=== PATIENT | male | born 1975 | race Caucasian/White ===

== ENCOUNTER 2019-03-18 18:49 | Emergency (ER) | payer OTHER, SELFPAY ==
--- NOTE | 2019-03-18 18:51 | ED.GENADULT ---
HPI - General Adult General Chief complaint: Upper Respiratory Infection Stated complaint: sore throat/ear pain Time Seen by Provider: 03/18/19 18:51 Source: patient Mode of arrival: ambulatory Limitations: no limitations History of Present Illness HPI narrative: 44-year-old male patient presents to the [facility] with complaints of sore throat and bilateral ear pain for the past 3 weeks. Patient states he does have a history of chronic sinusitis and has been had a cough recently as well recently has been coughing up some brown sputum. Patient states he is tried taking some ricola for his sore throat. Patient states that he does see an ENT doctor in [place]. Denies any fevers that he is aware of. Patient states he has had strep before in the past and does have children at home but denies any children recently being sick with strep that he is aware of. Related Data Home Medications Medication Instructions Recorded Confirmed cyclobenzaprine 10 mg TID 03/18/19 03/18/19 montelukast 10 mg HS 03/18/19 03/18/19 Allergies Allergy/AdvReac Type Severity Reaction Status Date / Time droperidol Allergy Unknown MUSCLE Verified 10/20/17 12:01 SPASMS codeine AdvReac Unknown STATES Verified 10/20/17 12:01 FAMILY HAS ALLERGY TO THIS, PREFERS NOT TO HAVE hydrocodone AdvReac Unknown SWEATING/NA Verified 10/20/17 12:01 USEA/VOMITI NG meperidine AdvReac Unknown N/V Verified 10/20/17 12:01 Review of Systems Review of Systems: Narrative: CONSTITUTIONAL: Denies fever, chills, or sweats. EYES: Denies visual changes, redness, or discharge. ENT: Denies rhinorrhea, congestion, positive sore throat, positive bilateral otalgia. CARDIOVASCULAR: Denies chest pain, palpitations, or edema. RESPIRATORY: Positive productive cough, denies dyspnea. GASTROINTESTINAL: Denies abdominal pain, nausea, vomiting, or diarrhea. GENITOURINARY: Denies dysuria or hematuria. SKIN: Denies rash or itching. MUSCULOSKELETAL: Denies back pain, joint pain, or myalgia. NEUROLOGIC: Denies headache, numbness, or weakness. PSYCHIATRIC: Denies anxiety or depression. [facility] Past Medical History Medical History (Updated 03/18/19 @ 19:22 by GERALDO García) Asthma GERD (gastroesophageal reflux disease) Kidney stones Surgical History Surgical History (Updated 03/18/19 @ 18:52 by GERALDO García) H/O inguinal hernia repair History of orthopedic surgery Family History Family History Other Diabetes mellitus Family history of allergic disorder Hypertension Social History Social History Smoking status: Former smoker Smoking end date: 02/15/07 Alcohol intake: current Gender identity (if verbalized by the patient): Male Comments At the time of my signature I agree with nursing past medical history, surgical, social, and family history. There is no relevant family history pertinent to the presenting complaint. Exam Narrative: Exam Narrative: GENERAL: Well-appearing, well-nourished, and in no acute distress. HEAD: Normocephalic, atraumatic. Slight tenderness noted to frontal and maxillary sinuses on palpation EYES: PERRLA and EOMI. ENT: Nares with erythema and edema noted bilaterally, patent, no rhinorrhea or epistaxis. Mucous membranes moist. Posterior pharynx with 2+ tonsil enlargement and erythema noted. Bilateral TMs are clear with no erythema or foreign bodies in the canal. NECK: Supple. No lymphadenopathy CHEST: Clear to auscultation. No respiratory distress. HEART: Regular rate and rhythm. No murmur heard. Normal peripheral pulses. ABDOMEN: Soft, nontender, nondistended, normal active bowel sounds. EXTREMITIES: Normal range of motion. No edema. SKIN: Warm, dry, no rash. NEURO: No focal deficits. Alert and oriented x3. Course Reevaluation(s) Reevaluation #1: Discussed with patient t
[2019-03-18 19:02] VITALS: BP 139/93; PULSE 90; RESP 20; TEMP 36.6; O2SAT 99
== END 2019-03-18 19:20 | disposition home or self-care (01) ==
PROVIDERS: Emergency Provider Nurse Practitioner Family; PCP Internal Medicine
DX: J01.00 Acute maxillary sinusitis, unspecified (principal); J02.9 Acute pharyngitis, unspecified; Z87.891 Personal history of nicotine dependence; J45.909 Unspecified asthma, uncomplicated; K21.9 Gastro-esophageal reflux disease without esophagitis
CPT/HCPCS: 87081; 87880; 99213; G0463

== ENCOUNTER → 2019-05-01 10:39 | Outpatient (CLI) | payer OTHER, SELFPAY ==
--- NOTE | ~2019-05-01 | XR_ITS ---
EXAMINATION: XR abdomen/kub 1V INDICATION: Calculus of the kidney TECHNIQUE: Supine views of the abdomen were obtained on 2 radiographs. COMPARISON: 05/03/2017 FINDINGS: No urinary tract calculi are identified. The bowel gas pattern is normal. A moderate volume of colonic stool is present. IMPRESSION: 1. No urinary tract calculi identified. Reviewed, dictated and finalized at location A.
== END ==
PROVIDERS: PCP Internal Medicine; Visit Provider Urology
DX: N20.0 Calculus of kidney (principal)
CPT/HCPCS: 74018

== ENCOUNTER 2020-09-30 08:39 | Outpatient (CLI) | payer OTHER, SELFPAY ==
--- NOTE | ~2020-09-30 | XR_ITS ---
EXAMINATION: XR ankle LT min 3V, XR ankle RT min 3V, XR foot RT min 3V, XR foot LT min 3V DATE: 09/30/2020 09:23 INDICATION: Left heel pain and right ankle pain. TECHNIQUE: 1. Weight bearing anteroposterior, mortise, additional oblique and lateral view of the left ankle wer e obtained. 2. Weight bearing dorsal plantar, two oblique and lateral views of the left foot were obtained. 3. Weight bearing anteroposterior, mortise, additional oblique and lateral view of the right ankle we re obtained. 4. Weight bearing dorsal plantar, two oblique and lateral views of the right foot were obtained. COMPARISON: None. FINDINGS: Left foot and ankle: Alignment of the chest foot and ankle is normal. No fracture or osteochondral lesion. Joint spaces ar e well maintained. No erosions or periosteal reaction. No ankle joint effusion. Moderate-sized planta r calcaneal spur. The soft tissues are unremarkable. Right foot and ankle: Mild right pes planus. Otherwise normal alignment of the right foot and ankle is normal. No fracture or osteochondral lesion. Joint spaces are well maintained. No erosions or periosteal reaction. No ank le joint effusion. Small plantar calcaneal spur. The soft tissues are unremarkable. IMPRESSION: 1. Mild right pes planus. 2. Small right and moderate sized left plantar calcaneal spurs. Reviewed, dictated and finalized at location A. IMPRESSION: 1. Mild right pes planus. 2. Small right and moderate sized left plantar calcaneal spurs. IMPRESSION: 1. Mild right pes planus. 2. Small right and moderate sized left plantar calcaneal spurs. IMPRESSION: 1. Mild right pes planus. 2. Small right and moderate sized left plantar calcaneal spurs.
== END 2020-09-30 08:40 | disposition home or self-care (01) ==
LOC: CHSIMG 08:43
PROVIDERS: PCP Internal Medicine; Visit Provider Orthopaedic Surgery
DX: M79.672 Pain in left foot (principal); M79.671 Pain in right foot; M25.572 Pain in left ankle and joints of left foot; M25.571 Pain in right ankle and joints of right foot
CPT/HCPCS: 73610; 73630

== ENCOUNTER 2021-08-14 19:54 | Emergency (ER) | payer OTHER, SELFPAY ==
--- NOTE | 2021-08-14 20:01 | ED.MALEGU ---
HPI - Male Genitourinary General Chief complaint: Urogenital-Male Stated complaint: poss kidney stone Time Seen by Provider: 08/14/21 20:01 History of Present Illness HPI Narrative: John Rossi is a 46 yo male with asthma, GERD, SAMAN, kidney stones who comes to express care with possible kidney stone. Came in at 3 minutes until 8:00 for evaluation-reports pain is 5 out of 10, has had kidney stones before and believes this is the cause of his pain, has left flank pain lower left inguinal pain has had some nausea and some diarrhea today. States urine this morning was concentrated and what he believed to be half blood Related Data Home Medications Medication Instructions Recorded Confirmed loratadine 10 mg tablet (Claritin) 10 mg PO DAILY 09/30/20 montelukast 10 mg tablet 10 mg PO DAILY 09/30/20 (Singulair) cyclobenzaprine 10 mg tablet 1 tablet BID 08/14/21 08/14/21 Allergies Allergy/AdvReac Type Severity Reaction Status Date / Time droperidol Allergy Unknown MUSCLE Verified 08/14/21 20:12 SPASMS codeine AdvReac Unknown STATES Verified 08/14/21 20:12 FAMILY HAS ALLERGY TO THIS, PREFERS NOT TO HAVE hydrocodone AdvReac Unknown SWEATING/NA Verified 08/14/21 20:12 USEA/VOMITI NG meperidine AdvReac Unknown N/V Verified 08/14/21 20:12 Review of Systems Review of Systems: CONSTITUTIONAL: Denies fever, chills, sweats. EYES: Denies visual changes, redness, discharge. ENT: Denies rhinorrhea, congestion, sore throat, otalgia. CARDIOVASCULAR: Denies chest pain, palpitations, edema. RESPIRATORY: Denies dyspnea, wheezing, cough GASTROINTESTINAL: Denies abdominal pain, nausea, vomiting, diarrhea. GENITOURINARY: Denies dysuria, hematuria, abnormal discharge SKIN: Denies rash or itching. NEUROLOGIC: Denies numbness, or focal weakness. PSYCHIATRIC: Denies anxiety or depression. Flank pain PMFSH Past Medical History Medical History Asthma Capsulitis of right ankle Congestion of nasal sinus Contusion of ankle, right GERD (gastroesophageal reflux disease) History of adverse reaction to anesthesia History of postoperative complication of surgical procedure Kidney stones SAMAN (obstructive sleep apnea) Plantar fasciitis of left foot Surgical History Surgical History H/O inguinal hernia repair History of extraction of renal calculus History of orthopedic surgery Family History Family History Other Diabetes mellitus Family history of allergic disorder High cholesterol Hypertension Social History Social History Smoking status: Former smoker Smoking end date: 03/02/06 Alcohol intake: current Drinks per week: 3 Substance use: never Substance use type: does not use Gender identity (if verbalized by the patient): Male Comments At time of signature, I agree with nursing past medical, surgical, social and family history. There is no relevant family history pertinent to the presenting complaint. Exam Narrative: GENERAL: This is a well-nourished, well-developed patient, in mild distress. HEAD: normocephalic, atraumatic. EYES:Sclera clear/white. Vision is grossly intact. EARS: External ears normal, Hearing grossly intact. NOSE: External nose normal without nasal discharge, nares without redness, no rhinorrhea. THROAT: Mucous membranes moist, NECK: Neck supple, non-tender CARDIOVASCULAR: Regular rate and rhythm without murmurs, gallops, or rubs. RESPIRATORY: Clear to auscultation. Breath sounds equal bilaterally. GASTROINTESTINAL: Abdomen soft, large pannus, pain in the left flank going down into the left inguinal area SKIN: warm, intact with no suspicious lesions or rash, good texture and turgor. NEURO: awake, alert, and oriented to person, pl
[2021-08-14 20:08] VITALS: BP 155/99; PULSE 102; RESP 18; TEMP 37.1; O2SAT 99
== END 2021-08-14 20:17 | disposition short-term general hospital (02) ==
PROVIDERS: Emergency Provider Nurse Practitioner; PCP Internal Medicine
DX: R10.9 Unspecified abdominal pain (principal); Z87.891 Personal history of nicotine dependence; J45.909 Unspecified asthma, uncomplicated; K21.9 Gastro-esophageal reflux disease without esophagitis; Z87.442 Personal history of urinary calculi
CPT/HCPCS: 81003; 87086; 99213; G0463

== ENCOUNTER 2021-08-14 20:34 | Emergency (ER) | payer OTHER, SELFPAY ==
--- NOTE | ~2021-08-14 | XR_ITS ---
EXAMINATION: XR abdomen/kub 1V INDICATION: Left flank pain TECHNIQUE: Supine views of the abdomen were obtained on 2 radiographs. COMPARISON: 04/30/2009 FINDINGS: There is a 7 mm stone at the expected location of the left ureteropelvic junction. The know n nonobstructing right kidney stone identified on today's CT is not definitely identified. The lung b ases are clear. The bowel gas pattern is normal. IMPRESSION: 1. 7 mm stone at the expected location of the left ureteropelvic junction. Reviewed, dictated and finalized at location F.
--- NOTE | ~2021-08-14 | CT_ITS ---
EXAMINATION: CT abdomen pelvis wo con DATE: 08/14/2021 21:05 INDICATION: Left flank pain TECHNIQUE: Computed tomography (CT) of the abdomen and pelvis was performed without intravenous contr ast. The dose-length product (DLP) was 707.41 mGy-cm. Automated exposure control and iterative recons truction technique were employed. COMPARISON: 11/17/2014 FINDINGS: Minimal dependent atelectasis is present in the lung bases. The heart size is normal. A 3 m m nodule of the right lower lobe likely represents old granulomatous disease. There is a small slidin g hiatal hernia. Punctate calcifications in an otherwise normal spleen likely represent healed granul omatous disease. The liver, pancreas, gallbladder, and adrenal glands are normal. There is a 5 mm sto ne at the left ureteropelvic junction. There is a 3 mm nonobstructing stone of the right kidney. The appendix is normal. No pathologically enlarged abdominal or pelvic lymph nodes are identified. There is no free intraperitoneal gas or evidence of bowel obstruction. There is moderate lumbar spondylosis . IMPRESSION: 1. 5 mm stone at left ureteropelvic junction. 2. Nonobstructing right nephrolithiasis. Reviewed, dictated and finalized at location F.
[2021-08-14 20:36] VITALS: BP 172/100; PULSE 110; RESP 20; TEMP 36.5; O2SAT 98
[2021-08-14 21:00] LABS: Basophils Percent Auto 0.3 % (0.2-1.2); Eosinophils Absolute Auto 0.1 K/mm3 (0-0.3); Eosinophils Percent Auto 0.5 % (0-4.4); Hematocrit 49.5 % (42.0-52.0); Immature Granulocyte Absolute 0.05 K/mm3 (0.00-0.031); Immature Granulocyte Percent A 0.4 % (0-0.5); Lymphocytes Percent Auto 13.5 % (18.3-44.2); Mean Corpuscular HGB Conc 34.3 g/dl (32-36); Mean Corpuscular Hemoglobin 30.4 pg (26-34); Mean Corpuscular Volume 88.6 fl (80-100); Mean Platelet Volume 8.9 fl (7.4-10.4); Monocytes Absolute Auto 0.8 K/mm3 (0.1-0.6); Neutrophils Absolute Auto 8.7 K/mm3 (1.3-6.7); Neutrophils Percent Auto 78.3 % (45.5-73.1); Platelet Count Result 257 k/mm3 (150-375); Red Blood Count 5.59 M/mm3 (4.6-6.20); Red Cell Distribution Width 12.4 % (11.5-14.5); White Blood Count 11.2 K/mm3 (4.5-10.0)
[2021-08-14 21:01] LABS: Appearance Urine Clear (Clear); Bilirubin Urine Negative (Negative); Color Urine Yellow (Yellow); Glucose Urine UA Negative (Negative); Ketones Urine Negative (Negative); Leukocyte Esterase Ur Negative LEU/UL (Negative); Nitrate Urine Negative (Negative); Protein Urine Negative (Negative); Specific Grav Ur 1.025 (1.001-1.035); Urobilinogen Urine 0.2 mg/dL (<2.0)
[2021-08-14 21:03] LABS: Add Urine Microscopic? YES; Blood Urine Trace-Intact (Negative)
[2021-08-14 21:04] LABS: WBC Urine 0-3 /hpf
[2021-08-14 21:09] LABS: Alanine Aminotransferase 24 U/L (6-50); Albumin Level 4.4 g/dL (3.5-5.1); Alkaline Phosphatase 86 U/L (38-126); Anion Gap 5 mmol/L (8-16); Aspartate Amino Transferase 21 U/L (17-59); Bilirubin,Total 0.3 mg/dL (0.2-1.3); Blood Urea Nitrogen 17 mg/dL (9-20); Carbon Dioxide 27 mmol/L (22-30); Chloride 107 mmol/L (98-107); Estimated CRCL calculation 129 ml/min; Estimated Glomerular Filt Rate > 60; Glucose 115 mg/dL (65-110); Lipase 64 U/L (23-300); Potassium 4.4 mmol/L (3.4-5.0); Sodium 139 mmol/L (137-145)
[2021-08-14] MEDS: MORPHINE SULFATE (*CRX) 4 MG/ML INJ IV PUSH (21:10)
[2021-08-14] MEDS: ONDANSETRON INJ 4 MG/2 ML VIAL IV PUSH (21:10)
[2021-08-14] MEDS: SODIUM CHLORIDE 0.9% IV 1,000 ML 150 ML IV CONT (21:11)
--- NOTE | 2021-08-14 22:06 | ED.ABDPAIN ---
HPI - Abdominal Pain General Chief Complaint: Abdominal Pain Stated Complaint: flank pain h/o stones Time Seen by Provider: 08/14/21 20:46 Source: patient Mode of arrival: ambulatory Limitations: no limitations History of Present Illness HPI narrative: 46-year-old with a history of kidney stones here with complaints of left flank pain started yesterday . Patient states that he always has large stones which needs intervention all the time. He denies any fever or chills. He also states that he had some blood in his urine. MD elicited complaint: flank pain Pertinent past history: kidney stones Pain Consistency: constant Location: L flank Severity: moderate Quality: aching Radiation: none Migration to: no migration Exacerbating factors: nothing Relieving factors: nothing Associated symptoms: nausea Related Data Home Medications Medication Instructions Recorded Confirmed loratadine 10 mg tablet (Claritin) 10 mg PO DAILY 09/30/20 08/14/21 montelukast 10 mg tablet 10 mg PO DAILY 09/30/20 08/14/21 (Singulair) cyclobenzaprine 10 mg tablet 1 tablet BID 08/14/21 08/14/21 Allergies Allergy/AdvReac Type Severity Reaction Status Date / Time droperidol Allergy Unknown MUSCLE Verified 08/14/21 20:53 SPASMS codeine AdvReac Unknown STATES Verified 08/14/21 20:53 FAMILY HAS ALLERGY TO THIS, PREFERS NOT TO HAVE hydrocodone AdvReac Unknown SWEATING/NA Verified 08/14/21 20:53 USEA/VOMITI NG meperidine AdvReac Unknown N/V Verified 08/14/21 20:53 Review of Systems Review of Systems: All systems reviewed & are unremarkable except as noted in HPI and below Constitutional: Constitutional: Reports no additional constitutional complaints Eyes: Eyes: Reports no additional eye complaints ENT: Reports system reviewed and no additional complaints, except as documented Cardiovascular: Cardiovascular: Reports no additional cardiovascular complaints Respiratory: Respiratory: Reports no additional respiratory complaints Gastrointestinal: Gastrointestinal: Reports as per HPI Genitourinary: Genitourinary: Reports no additional male genitourinary complaints Musculoskeletal: Musculoskeletal: Reports no additional musculoskeletal complaints Integumentary/Breasts: Skin/Breast: Reports system reviewed and no additional complaints, except as docu Neurologic: Reports system reviewed and no additional complaints, except as documented [facility] Past Medical History Medical History Asthma Capsulitis of right ankle Congestion of nasal sinus Contusion of ankle, right GERD (gastroesophageal reflux disease) History of adverse reaction to anesthesia History of postoperative complication of surgical procedure Kidney stones SAMAN (obstructive sleep apnea) Plantar fasciitis of left foot Surgical History Surgical History H/O inguinal hernia repair History of extraction of renal calculus History of orthopedic surgery Family History Family History Other Diabetes mellitus Family history of allergic disorder High cholesterol Hypertension Social History Social History Smoking status: Former smoker Smoking end date: 03/02/06 Alcohol intake: current Drinks per week: 3 Substance use: never Substance use type: does not use Gender identity (if verbalized by the patient): Male Exam Narrative: GENERAL: Well-appearing, well-nourished, and in no acute distress. HEAD: Normocephalic, atraumatic. EYES: PERRLA and EOMI.. NECK: Supple. CHEST: Clear to auscultation. No respiratory distress. HEART: Regular rate and rhythm. No murmur heard. Normal peripheral pulses. ABDOMEN: Soft, nontender, nondistended, normal active bowel sounds. EXTREMITIES: Normal range of motion. No edema. SK
[2021-08-14 22:27] VITALS: RESP 16; O2SAT 99
== END 2021-08-14 22:28 | disposition home or self-care (01) ==
PROVIDERS: Physician Assistant; Emergency Provider Family Medicine; PCP Internal Medicine
DX: N20.2 Calculus of kidney with calculus of ureter (principal); J45.909 Unspecified asthma, uncomplicated; K21.9 Gastro-esophageal reflux disease without esophagitis; G47.33 Obstructive sleep apnea (adult) (pediatric); Z87.442 Personal history of urinary calculi; Z87.891 Personal history of nicotine dependence
CPT/HCPCS: 36415; 74018; 74176; 80053; 81001; 83690; 85025; 96360; 96374; 96375; 99284; J2270; J2405; J7030

== ENCOUNTER 2021-09-03 16:10 | Outpatient (CLI) | payer OTHER, SELFPAY ==
--- NOTE | ~2021-09-03 | XR_ITS ---
EXAM: XR abdomen/kub 1V DATE: 09/03/2021 16:25 HISTORY: LEFT URETERAL STONE . COMPARISON: 08/14/2021. CT abdomen pelvis, same date. FINDINGS: Clear lung bases. Normal bowel gas pattern. No organomegaly. 10 mm calcification at the le ft UPJ, unchanged. Regional bones and soft tissues normal for age. IMPRESSION: Stable left UPJ stone. Punctate bilateral nonobstructive calculi seen in the prior CT are not radiographically visible. Reviewed, dictated and finalized at location K. IMPRESSION: Stable left UPJ stone. Punctate bilateral nonobstructive calculi se en in the prior CT are not radiographically visible.
== END 2021-09-03 16:11 | disposition home or self-care (01) ==
PROVIDERS: PCP Internal Medicine; Visit Provider Nurse Practitioner Adult Health
DX: N20.2 Calculus of kidney with calculus of ureter (principal)
CPT/HCPCS: 74018

== ENCOUNTER 2021-09-05 00:42 | Day surgery (SDC) | payer OTHER, SELFPAY ==
[2021-09-04 14:23] VITALS: BMI 36.9
--- NOTE | 2021-09-04 14:31 | PC.NURSE ---
Report to the Outpatient Waiting Room, entrance under the green pavilion located off [facility], at time 0930 on date 09/05/21. OR Time: 1130. - You and your visitor will be asked a series of questions to screen for COVID 19 for your protection. - Only one visitor is allowed at this time. - The patient visitor is requested to leave or wait in car when not with patient. - A mask is required within the hospital. Patients may have clear liquids (water, carbonated beverages, clear teas, apple juice) until 3 hours prior to surgery with a maximum of 20 ounces. - No food from midnight until time of surgery Take the following medications with a SIP of water the morning of surgery: PAIN PILL (IF NEEDED) Medications to discontinue per physician: CELEBREX Date to take last dose: NO MORE UNTIL AFTER SURGERY Please no make-up, nail croatian, hairspray, perfume, deodorant, or body powder the day of surgery. No jewelry (including any body piercings) or valuables the day of surgery, leave them at home. Please take a shower or bath the night before, or the morning of, surgery with an antibacterial soap. Wear comfortable, loose fitting clothing. - Jewelry must be removed prior to entering the operating room. Rings and piercings that are not removed may be cut off. - The hospital will not accept responsibility for valuables. - Please leave all valuables, including medications, at home the day of surgery. If you are going home after surgery, a licensed warehouse driver must drive you home. - NO public transportation without another adult. - We recommend that an adult stay with you for 24 hours following discharge. - We also recommend that you do not drive, make important decision, drink alcoholic beverages, or take any drugs that were not prescribed by your health care provider for at least 24 hours after your discharge time. Follow any additional instructions given to you from your surgeon. If you or anyone in your household have experienced Covid symptoms in the past week, please notify your surgeon or the nurse liaison at the phone number below for possible testing. Telephone instructions given to PT - ASHOK VIVAS and asked if any additional questions and then verbalized understanding. Patient advised to call surgeon office or pre surgery nurse liaison [phone] if any additional questions.
[2021-09-05] VITALS (9 sets, daily range): BP systolic 120–144; BP diastolic 64–96; PULSE 80–91; RESP 14–23; TEMP 36.6–37.1; O2SAT 98–100
--- NOTE | ~2021-09-05 | XR_ITS ---
XR abdomen/kub 1V 09/05/2021 09:58 Indication: Renal stones. Preop ESWL. Procedure: KUB Comparison: Comparison to multiple prior studies sequentially, with oldest reviewed study dated 05/03. Findings: Bowel gas pattern is nonobstructive. Moderate colonic fecal loading. There is left renal st one presumably in the renal pelvis. No definite stones in the ureter. No acute osseous abnormality. L jenae bases are unremarkable. Impression: 1: Left nephrolithiasis. Reviewed, dictated and finalized at location A. Impression: 1: Left nephrolithiasis.
--- NOTE | 2021-09-05 07:02 | WPDHPUPDATE1 ---
History and Physical Update Update Date/Time: 09/05/21 07:02 History and Physical has been reviewed, including an updated exam of the patient. There are NO changes in the patient's condition. Risks, benefits, and alternatives have been discussed and questions answered. Patient agrees to proceed with procedure.
--- NOTE | 2021-09-05 10:33 | WPDANESEPPF ---
Anes - Initial Pre Proc Eval Procedure: Operation Date: 09/05/21 11:30 Proposed Procedures p Left Extracorporeal Shock Wave Lithotripsy - Keshav Poe MD Date/Time: 09/05/21 10:33 Surgeon: Keshav Poe MD Pre Op Diagnosis: Left Ureteral Stone Patient Data Age: 46 Gender: M Height: 1.75 m Weight: 112.4 kg Last Vital Signs Temp 37.1 C 09/05/21 10:03 Pulse 91 09/05/21 10:03 Resp 20 09/05/21 10:03 BP 133/85 09/05/21 10:03 Pulse Ox 99 09/05/21 10:03 O2 Del Method Room Air 09/05/21 10:03 Allergies Allergy/AdvReac Type Severity Reaction Status Date / Time droperidol Allergy Unknown MUSCLE Verified 09/04/21 14:21 SPASMS codeine AdvReac Unknown STATES Verified 09/04/21 14:21 FAMILY HAS ALLERGY TO THIS, PREFERS NOT TO HAVE hydrocodone AdvReac Unknown SWEATING/NA Verified 09/04/21 14:21 USEA/VOMITI NG meperidine AdvReac Unknown N/V Verified 09/04/21 14:21 Home Medications Medication Instructions Recorded Confirmed Type loratadine 10 mg tablet (Claritin) 10 mg PO DAILY 09/30/20 09/04/21 History montelukast 10 mg tablet 10 mg PO DAILY 09/30/20 09/04/21 History (Singulair) cyclobenzaprine 10 mg tablet 1 tablet PO BID 08/14/21 09/04/21 History oxycodone-acetaminophen 5 mg-325 1 tablet PO Q6H PRN pain #20 tabs 08/14/21 09/04/21 Rx mg tablet (Percocet) tamsulosin 0.4 mg capsule (Flomax) 0.4 mg PO HS #10 caps 08/14/21 09/04/21 Rx celecoxib 100 mg capsule 200 mg PO Q24H PRN Pain 09/04/21 09/04/21 History Laboratory Tests 09/05/21 10:17 Urine Color Pending Urine Appearance Pending Urine pH Pending Ur Specific [place] Pending Urine Protein Pending Urine Glucose (UA) Pending Urine Ketones Pending Ur Blood (Man) Pending Urine Nitrate Pending Urine Bilirubin Pending Urine Urobilinogen Pending Leukocyte Esterase Rfl Pending Patient hx anesthesia problems: none Family hx anesthesia problems: none Results Review: All pre-operative results and documents have been reviewed as part of the pre-operative evaluation. [facility] Past Medical History Medical History Asthma Capsulitis of right ankle Congestion of nasal sinus Contusion of ankle, right GERD (gastroesophageal reflux disease) History of adverse reaction to anesthesia History of postoperative complication of surgical procedure Kidney stones SAMAN (obstructive sleep apnea) Plantar fasciitis of left foot Surgical History Surgical History H/O inguinal hernia repair History of extraction of renal calculus History of orthopedic surgery Family History Family History Other Diabetes mellitus Family history of allergic disorder High cholesterol Hypertension Social History Social History Smoking packs per day: 0.5 Smoking cigarettes per day: 10.0 Years smoked: 10 Smoking pack-years: 5.00 Smoking status: Former smoker Tobacco type: cigarettes Smoking end date: 03/01/06 Alcohol intake: current Drinks per week: 2 Substance use: never Substance use type: does not use Living arrangements: with family Gender identity (if verbalized by the patient): Male Spiritual care concerns: No Anes - Eval Final PreProcedure Day of Procedure 09/05/21 10:33 Patient weight: obese Heart: regular rate and rhythm Lungs: clear to auscultation and normal air movement Airway: Mallampati scale class II Neurological: alert and oriented Last oral intake: >/= 8 hours ASA classification: III Emergent: no Anesthetic plan: proceed Anesthesia type and monitoring: general LMA Results Review: All pre-operative results and documents have been reviewed as part of the pre-operative
[2021-09-05 10:39] LABS: Appearance Urine Slightly Cloudy (Clear); Bilirubin Urine Negative (Negative); Blood Urine Negative (Negative); Color Urine Yellow (Yellow); Glucose Urine UA Negative (Negative); Ketones Urine Negative (Negative); Leukocyte Esterase Ur Negative LEU/UL (Negative); Nitrate Urine Negative (Negative); Protein Urine Trace mg/dL (Negative); Urobilinogen Urine 0.2 mg/dL (<2.0)
[2021-09-05] MEDS: LACTATED RINGERS 1,000 ML 30 ML IV CONT ×2 (10:40→12:57)
[2021-09-05 10:49] LABS: Bacteria Urine Trace /hpf; Mucus Urine Few /lpf; WBC Urine 0-3 /hpf
[2021-09-05 10:53] LABS: Add Urine Microscopic? YES
[2021-09-05 10:56] LABS: INR 1.1; Prothrombin Time 13.4 Seconds (11.1-14.7)
--- NOTE | 2021-09-05 11:35 | PM.HPGS ---
History of Present Illness History of Present Illness Consent: Risks, benefits, and alternatives have been discussed and questions answered. Patient agrees to proceed with procedure. Chief complaint: Left Ureteral Stone Narrative: John Rossi is a 46 year old male has had stones in the past that have required both lithotripsy and endoscopic extraction presents with left flank imaging that shows an obstructing 5 mm calcified left proximal calculus. After discussion of options including medical expulsive therapy, ureteroscopy and extracorporeal shockwave lithotripsy he elects for the latter. He is risk including, but not limited to, need for additional procedures, stone fragments may be obstructive in cause additional pain hematuria and perinephric hematoma Review of Systems Cardiovascular: Cardiovascular: Denies chest pain, Denies lightheadedness, Denies palpitations and Denies dyspnea Respiratory: Respiratory: Denies dyspnea Gastrointestinal: Gastrointestinal: Denies diarrhea, Denies nausea and Denies vomiting Genitourinary: Genitourinary: Denies hematuria and Denies dysuria Endocrine: Endocrine: Denies palpitations PMFSH Past Medical History Medical History Asthma Capsulitis of right ankle Congestion of nasal sinus Contusion of ankle, right GERD (gastroesophageal reflux disease) History of adverse reaction to anesthesia History of postoperative complication of surgical procedure Kidney stones SAMAN (obstructive sleep apnea) Plantar fasciitis of left foot Surgical History Surgical History H/O inguinal hernia repair History of extraction of renal calculus History of orthopedic surgery Family History Family History Other Diabetes mellitus Family history of allergic disorder High cholesterol Hypertension Social History Social History Smoking packs per day: 0.5 Smoking cigarettes per day: 10.0 Years smoked: 10 Smoking pack-years: 5.00 Smoking status: Former smoker Tobacco type: cigarettes Smoking end date: 03/01/06 Alcohol intake: current Drinks per week: 2 Substance use: never Substance use type: does not use Living arrangements: with family Gender identity (if verbalized by the patient): Male Spiritual care concerns: No Meds Home Medications and Allergies Home Medications Medication Instructions Recorded Confirmed Type loratadine 10 mg tablet (Claritin) 10 mg PO DAILY 09/30/20 09/05/21 History montelukast 10 mg tablet 10 mg PO DAILY 09/30/20 09/05/21 History (Singulair) cyclobenzaprine 10 mg tablet 1 tablet PO BID 08/14/21 09/05/21 History oxycodone-acetaminophen 5 mg-325 1 tablet PO Q6H PRN pain #20 tabs 08/14/21 09/05/21 Rx mg tablet (Percocet) tamsulosin 0.4 mg capsule (Flomax) 0.4 mg PO HS #10 caps 08/14/21 09/05/21 Rx celecoxib 100 mg capsule 200 mg PO Q24H PRN Pain 09/04/21 09/05/21 History Allergies Allergy/AdvReac Type Severity Reaction Status Date / Time droperidol Allergy Unknown MUSCLE Verified 09/05/21 10:49 SPASMS codeine AdvReac Unknown STATES Verified 09/05/21 10:49 FAMILY HAS ALLERGY TO THIS, PREFERS NOT TO HAVE hydrocodone AdvReac Unknown SWEATING/NA Verified 09/05/21 10:49 USEA/VOMITI NG meperidine AdvReac Unknown N/V Verified 09/05/21 10:49 Vital Signs Vital Signs - 24 hr 09/05/21 10:03 Temperature 98.8 F Pulse Rate 91 Respiratory Rate 20 Blood Pressure 133/85 Pulse Oximetry 99 Oxygen Delivery Room Air Exam Const: General: no acute distress Resp: Effort & Inspection: normal respiratory effort GI: Inspection: non-distended GI Palp: No abdominal tenderness and No Guarding due to palpation present (GI) Auscultation: normal bowel sounds Assessment and Plan
--- NOTE | 2021-09-05 11:36 | WPDHPUPDATE1 ---
History and Physical Update Update Date/Time: 09/05/21 11:36 History and Physical has been reviewed, including an updated exam of the patient. There are NO changes in the patient's condition. Risks, benefits, and alternatives have been discussed and questions answered. Patient agrees to proceed with procedure.
[2021-09-05] MEDS: ceFAZolin 2 GM/D5W 50 ML 2 GM/50 ML BAG IVPB (12:16)
--- NOTE | 2021-09-05 12:30 | W.PM.PROC2 ---
Procedure Note - Detailed Date of Procedure 09/05/21 Pre-op Diagnosis Left Ureteral Stone Post-op Diagnosis Same Procedure Performed Left ESWL Surgeon Keshav Poe MD Description of Procedure The patient was brought to the operative suite where he was placed in the supine position on the Dornier lithotripsy table. The focal point of the lithotripter was placed at a 5mm left UPJ calculus. A total of 2500 shocks were delivered at a power setting of 4. There appeared to be good fragmentation of the stone. The patient tolerated the procedure well and was taken to the recovery room in good condition. Drains No Packing No Pathology None sent Complications No immediate complications
[2021-09-05] MEDS: fentaNYL CITRATE INJ (*CRX) 100 MCG/2 ML VIAL 25 MCG IV PUSH ×4 (13:37→13:58)
[2021-09-05] MEDS: ONDANSETRON INJ 4 MG/2 ML VIAL IV PUSH (14:05)
[2021-09-05] MEDS: oxyCODONE HCL (*CRX) 5 MG TAB IR PO (14:29)
== END 2021-09-05 15:20 | disposition home or self-care (01) ==
PROVIDERS: PCP Internal Medicine; Visit Provider Urology
PROC: (CPT 50590; principal; 2021-09-05 11:30)
DX: N20.1 Calculus of ureter (principal); J45.909 Unspecified asthma, uncomplicated; G47.33 Obstructive sleep apnea (adult) (pediatric); Z87.891 Personal history of nicotine dependence; E66.9 Obesity, unspecified; Z68.36 Body mass index [BMI] 36.0-36.9, adult
CPT/HCPCS: 50590; 36415; 74018; 81001; 85610; 85730; A9270; J0690; J1100; J2250; J2405; J2704; J3010; J7120

== ENCOUNTER → 2021-09-12 15:08 | Outpatient (CLI) | payer OTHER, SELFPAY ==
--- NOTE | ~2021-09-12 | XR_ITS ---
XR abdomen/kub 1V 09/12/2021 15:26 Indication: Left ureteral stone Procedure: KUB Comparison: Comparison to multiple prior studies sequentially, with oldest reviewed study dated 04/30. Findings: Interval inferior migration of left ureteral stone now at the L3 level. Bowel gas pattern n onobstructive. No acute osseous abnormality. Lung bases are unremarkable. Impression: 1: Inferior migration of left ureteral stone now at the L3 level. Reviewed, dictated and finalized at location A. Impression: 1: Inferior migration of left ureteral stone now at the L3 level.
== END ==
PROVIDERS: PCP Internal Medicine; Visit Provider Nurse Practitioner Adult Health
DX: N20.1 Calculus of ureter (principal)
CPT/HCPCS: 74018

== ENCOUNTER 2021-09-18 13:37 | Outpatient (CLI) | payer OTHER, SELFPAY ==
--- NOTE | ~2021-09-18 | XR_ITS ---
XR abdomen/kub 1V DATE: 09/18/2021 13:49 INDICATION: Left ureteral stone TECHNIQUE: AP projection, 2 views COMPARISON: 09/12/2021 FINDINGS: Calcified proximal left ureteral calculus is relatively unchanged in position since 09/13/19 22, at lower L3 level. No other calcified urinary tract calculus is noted. The psoas shadows are intact. No visceromegaly is evident. No evidence of bowel obstruction. Included skeletal structures are unremarkable. IMPRESSION: Persistent calcified proximal left ureteral calculus at lower L3 level Reviewed, dictated and finalized at Location A. Reviewed, dictated and finalized at location B. IMPRESSION: Persistent calcified proximal left ureteral calculus at lower L3 le nelson
== END 2021-09-18 13:38 | disposition home or self-care (01) ==
PROVIDERS: PCP Physician Assistant Medical; Visit Provider Nurse Practitioner Adult Health
DX: N20.1 Calculus of ureter (principal)
CPT/HCPCS: 74018

== ENCOUNTER 2021-09-19 07:58 | Day surgery (SDC) | payer OTHER, SELFPAY ==
[2021-09-19] VITALS (8 sets, daily range): BP systolic 143–163; BP diastolic 84–95; PULSE 91–105; RESP 10–18; TEMP 36.3–36.4; O2SAT 95–100; BMI 36.6
--- NOTE | ~2021-09-19 | XR_ITS ---
EXAMINATION: XR retrograde pyelo w/stent LT DATE: 09/19/2021 17:04 INDICATION: Left ureteral stone TECHNIQUE: 7 fluoroscopic images of the abdomen and pelvis were obtained during procedure performed sandra Poe. Radiologist was not present for the imaging or procedure. The amount of fluoroscopy vinh e used during this procedure was 1.4 minutes. COMPARISON: 09/18/2021 FINDINGS: The stone in the proximal left ureter can be seen on the patient transporter radiograph projecting to the left of t he L2-L3 disc space. Subsequent images demonstrate a catheter and wire advanced along the left ureter . Contrast isn't injected into the proximal left ureter and renal collecting system which demonstrate s mild left hydronephrosis. Final images demonstrate placement of a left internal ureteral stent with loops formed in the bladder and an upper pole calyx of the left kidney. The stone is not seen on the final images and has either refluxed into the contrast opacified left renal collecting system or bee n extracted. IMPRESSION: 1. Likely extraction of a stone in the proximal left ureter and placement of a left internal ureteral stent which is in expected position. See procedure note for further detail. Reviewed, dictated and finalized at location A.
--- NOTE | 2021-09-19 11:18 | PC.NURSE ---
Report to the Outpatient Waiting Room, entrance under the green pavilion located off [facility], at time 1400 on date 09/19/21. OR Time: 1600. - You and your visitor will be asked a series of questions to screen for COVID 19 for your protection. - Only one visitor is allowed at this time. - The patient visitor is requested to leave or wait in car when not with patient. - A mask is required within the hospital. Patients may have clear liquids (water, carbonated beverages, clear teas, apple juice) until 3 hours prior to surgery with a maximum of 20 ounces. - No food from midnight until time of surgery Take the following medications with a SIP of water the morning of surgery: N/A Medications to discontinue per physician: N/A Date to take last dose: N/A Please no make-up, nail citizen of [place], hairspray, perfume, deodorant, or body powder the day of surgery. No jewelry (including any body piercings) or valuables the day of surgery, leave them at home. Please take a shower or bath the night before, or the morning of, surgery with an antibacterial soap. Wear comfortable, loose fitting clothing. - Jewelry must be removed prior to entering the operating room. Rings and piercings that are not removed may be cut off. - The hospital will not accept responsibility for valuables. - Please leave all valuables, including medications, at home the day of surgery. If you are going home after surgery, a licensed medical driver must drive you home. - NO public transportation without another adult. - We recommend that an adult stay with you for 24 hours following discharge. - We also recommend that you do not drive, make important decision, drink alcoholic beverages, or take any drugs that were not prescribed by your health care provider for at least 24 hours after your discharge time. Follow any additional instructions given to you from your surgeon. If you or anyone in your household have experienced Covid symptoms in the past week, please notify your surgeon or the nurse liaison at the phone number below for possible testing. Telephone instructions given to PT - ASHOK VIVAS and asked if any additional questions and then verbalized understanding. Patient advised to call surgeon office or pre surgery nurse liaison [phone] if any additional questions.
[2021-09-19] MEDS: LACTATED RINGERS 1,000 ML 30 ML IV CONT ×2 (14:30→17:11)
--- NOTE | 2021-09-19 14:49 | WPDANESEPPF ---
Anes - Initial Pre Proc Eval Procedure: Operation Date: 09/19/21 16:00 Proposed Procedures p Cystoscopy, Left Ureteroscopy with Stone Extraction, Possible Holmium Laser, Possible Stent Placement, Possible Retrograde Pyelogram - Keshav Poe MD Date/Time: 09/19/21 14:49 Surgeon: Keshav Poe MD Pre Op Diagnosis: left ureteral stone Patient Data Age: 46 Gender: M Height: 1.75 m Weight: 112.4 kg Allergies Allergy/AdvReac Type Severity Reaction Status Date / Time droperidol Allergy Unknown MUSCLE Verified 09/19/21 08:24 SPASMS codeine AdvReac Unknown STATES Verified 09/19/21 08:24 FAMILY HAS ALLERGY TO THIS, PREFERS NOT TO HAVE hydrocodone AdvReac Unknown SWEATING/NA Verified 09/19/21 08:24 USEA/VOMITI NG meperidine AdvReac Unknown N/V Verified 09/19/21 08:24 Home Medications Medication Instructions Recorded Confirmed Type loratadine 10 mg tablet (Claritin) 10 mg PO HS 09/30/20 09/19/21 History montelukast 10 mg tablet 10 mg PO HS 09/30/20 09/19/21 History (Singulair) tamsulosin 0.4 mg capsule (Flomax) 0.4 mg PO HS #10 caps 08/14/21 09/19/21 Rx celecoxib 100 mg capsule 200 mg PO Q24H PRN Pain 09/04/21 09/19/21 History cyclobenzaprine 10 mg tablet 10 mg PO TID 09/19/21 09/19/21 History ketorolac 10 mg tablet 10 mg PO DAILY 09/19/21 09/19/21 History potassium citrate 5 mEq (540 mg) 5 meq PO DAILY 09/19/21 09/19/21 History tablet,extended release Patient hx anesthesia problems: none Family hx anesthesia problems: none Results Review: All pre-operative results and documents have been reviewed as part of the pre-operative evaluation. [facility] Past Medical History Medical History Asthma Capsulitis of right ankle Congestion of nasal sinus Contusion of ankle, right GERD (gastroesophageal reflux disease) History of adverse reaction to anesthesia History of postoperative complication of surgical procedure Kidney stones SAMAN (obstructive sleep apnea) Plantar fasciitis of left foot Surgical History Surgical History H/O inguinal hernia repair History of extraction of renal calculus History of orthopedic surgery Family History Family History Other Diabetes mellitus Family history of allergic disorder High cholesterol Hypertension Social History Social History Smoking packs per day: 0.5 Smoking cigarettes per day: 10.0 Years smoked: 5 Smoking pack-years: 2.50 Smoking status: Former smoker Tobacco type: cigarettes Smoking end date: 03/01/06 Alcohol intake: current Drinks per week: 2 Substance use: never Substance use type: does not use Gender identity (if verbalized by the patient): Male Spiritual care concerns: No Anes - Eval Final PreProcedure Day of Procedure 09/19/21 14:49 Patient weight: obese Heart: regular rate and rhythm Lungs: clear to auscultation Airway: Mallampati scale class II Neurological: alert and oriented Last oral intake: >/= 8 hours ASA classification: III Emergent: no Anesthetic plan: proceed Anesthesia type and monitoring: general ETT and standard monitoring Results Review: All pre-operative results and documents have been reviewed as part of the pre-operative evaluation. Informed Consent: The patient's anesthetic plan and its attendant risks and benefits were discussed with the patient/family/POA. Questions were solicited and answers provided to the satisfaction of the patient/family/POA.
[2021-09-19] MEDS: fentaNYL CITRATE INJ (*CRX) 100 MCG/2 ML VIAL 50 MCG IV PUSH (15:10)
--- NOTE | 2021-09-19 15:55 | WPDHPUPDATE1 ---
History and Physical Update Update Date/Time: 09/19/21 15:55 History and Physical has been reviewed, including an updated exam of the patient. There are NO changes in the patient's condition. Risks, benefits, and alternatives have been discussed and questions answered. Patient agrees to proceed with procedure.
[2021-09-19] MEDS: ceFAZolin 2 GM/D5W 50 ML 2 GM/50 ML BAG IVPB (16:15)
[2021-09-19] MEDS: LIDOCAINE HCL 2% GEL UROJET 10 ML PKG MUCOUS MEM (16:23)
[2021-09-19] MEDS: KETOROLAC 30 MG/ML VIAL (*BKC) IV PUSH (17:02)
--- NOTE | 2021-09-19 17:11 | W.PM.PROC2 ---
Procedure Note - Detailed Date of Procedure 09/19/21 Pre-op Diagnosis Left ureteral stone Post-op Diagnosis Same Procedure Performed Cystoscopy, left ureteroscopy with laser lithotripsy, stone extraction, retrograde pyelogram and left stent placement Surgeon Keshav Poe MD Description of Procedure The patient was brought to the operative suite where he is prepped and draped in a routine sterile fashion while in the dorsal lithotomy position after the uneventful induction of a general LMA anesthetic. A 19F rigid cystoscope was placed in the bladder. There are no urethral strictures. His prostatic urethra measures, approximately, 1.5cm with no median lobe enlargement. The bladder mucosa was endoscopically normal without hyperemia or neoplasm. There was a single, orthotopic ureteral orifice bilaterally. A 0.035 glidewire was advanced into the left renal pelvis under fluoroscopy. The distal ureter was dilated with an 8F/10F ureteral dilator. Ureteroscopy was undertaken with a 7.5F flexible ureteroscope. During ureteroscopy I fractured the stone into smaller pieces using a 273 micron Holmium laser fiber with the Holmium laser. I 1st attempted a dusting mode on this 7 mm left proximal ureteral stone but needed to switch to a hard stone mode or to fracture it. I was able to then extract the stone pieces using 1.9F Escape disposable stone basket after placing a 10F 12F ureteral access sheath.. Due to the extent of this manipulation I did place a 4.8F double-J ureteral stent. The proximal coil of the stent was confirmed to be in the renal pelvis and the distal coil in the bladder. The patient's bladder was emptied and he was taken to the recovery room having tolerated this procedure well. Drains Yes Packing No Pathology Yes Complications No immediate complications Condition Stable
[2021-09-19] MEDS: fentaNYL CITRATE INJ (*CRX) 100 MCG/2 ML VIAL 25 MCG IV PUSH ×4 (17:27→18:06)
[2021-09-19] MEDS: oxyCODONE HCL (*CRX) 5 MG TAB IR PO (18:42)
--- NOTE | 2021-09-19 19:16 | SUR.PHASEII ---
LACTATED RINGERS INFUSED AT 1900 = 600 ML; 400 ML WASTED TRUE WASTE.
== END 2021-09-19 19:15 | disposition home or self-care (01) ==
PROVIDERS: PCP Physician Assistant Medical; Visit Provider Urology
PROC: (CPT 52352; principal; 2021-09-19 16:00)
DX: N20.1 Calculus of ureter (principal); G43.909 Migraine, unspecified, not intractable, without status migrainosus; K21.9 Gastro-esophageal reflux disease without esophagitis; G47.33 Obstructive sleep apnea (adult) (pediatric); Z87.891 Personal history of nicotine dependence; E66.9 Obesity, unspecified; Z68.36 Body mass index [BMI] 36.0-36.9, adult; M54.12 Radiculopathy, cervical region; M54.2 Cervicalgia
CPT/HCPCS: 52356; 74420; 82365; 88300; A9270; C1769; C2617; J0330; J0690; J1100; J1885; J2250; J2405; J2704; J3010; J7120

== ENCOUNTER 2021-09-22 16:50 | Outpatient (CLI) | payer OTHER, SELFPAY ==
--- NOTE | ~2021-09-22 | XR_ITS ---
XR chest 2V DATE: 09/22/2021 17:02 INDICATION: Neck pain, left sided lump for one month, soft tissue calcification. TECHNIQUE: PA and lateral views COMPARISON: 09/19/2021 2 view chest listed on PACS procedure list; however, no images are available on PACS from this examination 01/22/2018 two-view chest FINDINGS: Normal heart size. No hilar or mediastinal enlargement. No pulmonary infiltrate or consolid ation, pleural effusion or pulmonary vascular congestion or pneumothorax is detected. IMPRESSION: No active cardiopulmonary disease Reviewed, dictated and finalized at location B.
== END 2021-09-22 16:51 | disposition home or self-care (01) ==
PROVIDERS: PCP Physician Assistant Medical; Visit Provider Physician Assistant Medical
DX: M54.2 Cervicalgia (principal); R22.1 Localized swelling, mass and lump, neck
CPT/HCPCS: 71046

== ENCOUNTER 2021-10-13 10:38 | Outpatient (CLI) | payer OTHER, SELFPAY ==
--- NOTE | ~2021-10-13 | XR_ITS ---
EXAM: XR abdomen/kub 1V DATE: 10/13/2021 11:00 HISTORY: LEFT URETERAL STONE . COMPARISON: 09/18/2021. FINDINGS: Clear lung bases. Normal bowel gas pattern. No organomegaly. Previously described left ure teral calcification no longer present. No abnormal abdominal calcification. Regional bones and soft t issues normal for age. IMPRESSION: Normal abdominal radiograph findings. Reviewed, dictated and finalized at location K.
== END 2021-10-13 10:39 | disposition home or self-care (01) ==
PROVIDERS: PCP Physician Assistant Medical; Visit Provider Urology
DX: N20.1 Calculus of ureter (principal)
CPT/HCPCS: 74018

== ENCOUNTER 2024-07-18 04:43 | Emergency (ER) | payer OTHER, SELFPAY ==
--- NOTE | ~2024-07-18 | XR_ITS ---
EXAMINATION: XR abdomen/kub 1V DATE: 07/18/2024 09:00 INDICATION: Assess progression of a right ureteral stone. TECHNIQUE: A supine view of the abdomen on 2 radiographs was obtained. COMPARISON: CT dated 07/18/2024 FINDINGS: C5-6 millimeters stone in the distal right ureter is unchanged in position projecting over the right sacral ala slightly medial to the inferior margin of the right sacroiliac joint. Additional smaller s tone at the lower pole the right kidney is obscured by superimposed stool in the colon. No dilated lo ops of bowel to suggest obstruction. Minimal lumbar dextrocurvature with severe spondylosis at the urbano mbosacral junction. IMPRESSION: 1. Unchanged 5 to 6 mm distal right ureteral stone. Reviewed, dictated and finalized at location A.
--- NOTE | ~2024-07-18 | CT_ITS ---
Non-contrast CT scan of the Abdomen and Pelvis Clinical indication: Right flank pain Technique: 2.5 mm axial scans were obtained through the abdomen and pelvis without intravenous or or al contrast. Dose reduction technique was used on this scan by utilizing automated exposure control a nd iterative reconstruction technique. The dose-length product (DLP) was 878.94 mGy-cm. COMPARISON: 08/14/2021 Findings: Images through the lung bases reveal no abnormalities. There is a 5 mm stone in the mid distal right ureter with moderate right hydroureteronephrosis to thi s level. Additional 3 mm nonobstructing right renal stone present. Possible punctate nonobstructing l eft renal stone. No left ureteral stone or left hydronephrosis. The liver, spleen, pancreas, gallbladder, and adrenals appear normal. There is no aortic aneurysm. There is no evidence of bowel obstruction. Images through the pelvis were performed. There is no evidence of ascites or lymphadenopathy. Urinary bladder unremarkable. No pelvic mass seen. Impression: 5 mm mid to distal right ureteral stone with moderate right hydroureteronephrosis to this level. Additional small nonobstructing renal stones, as above. Reviewed, dictated and finalized at location M. Impression: 5 mm mid to distal right ureteral stone with moderate right hydroureteronephros is to this level. Additional small nonobstructing renal stones, as above.
--- OUTSIDE RECORDS SUMMARY | 2024-07-18 04:46 | XMS_ITS | Clinical Summary ---
Author Organization [facility] Address [address] [address] [place] [address] Phone Care Team Providers Care Manager Secondary Name Role Phone Unavailable Primary Care Provider Unavailabl e Allergies Active Allergy Reactions Criticality Noted Date Comments Codeine Nausea and Vomiting, Swelling,Other (See Comments) Low 03/27/2019 Droperidol Muscle Pain,Seizure High 03/27/2019 Medications montelukast (SINGULAIR) 10 mg tablet Take 10 mg by mouth daily at bedtime. Active loratadine (CLARITIN RediTabs) 10 mg Tablet, Rapid Dissolve Place 10 mg inside cheek daily. Active OTHER Sublingual immunotherapy drops under tongue once daily Active OTHER Nettipot with saline, buedesonide and levoflaxacin Active amoxicillin-cl avulanate (AUGMENTIN) 875-125 mg tablet Take 875 Tablets by mouth 2 times daily. 0 Active predniSONE (DELTASONE) 10 mg tablet Take 10 mg by mouth see administration instructions. 9 Active Active Problems No known active problems Encounters Date Type Department Care Team Description 07/04/2024 External Device Data [facility] ABSTRACTION Provider, Abstract 05/30/2024 External Device Data [facility] ABSTRACTION Provider, Abstract 04/25/2024 External Device Data [facility] ABSTRACTION Provider, Abstract 04/25/2024 External Device Data [facility] ABSTRACTION Provider, Abstract 04/22/2024 External Device Data [facility] ABSTRACTION Provider, Abstract 04/21/2024 External Device Data [facility] ABSTRACTION Provider, Abstract from Last 3 Months Social History Tobacco Use Types Packs/Day Years Used Date Smoking Tobacco: Never Smokeless Tobacco: Never Sex and Gender Information Value Date Recorded Sex Assigned at Not on file Legal Sex Male 2:36 PM CDT Gender Identity Not on file Sexual Orientation Not on file Last Filed Vital Signs Vital Sign Reading Time Taken Comments Blood Pressure 136/76 03/27/2019 3:01 PM [employer] Pulse 73 03/27/2019 3:01 PM [employer] Temperature - - Respiratory Rate 18 03/27/2019 3:01 PM [employer] Oxygen Saturation 97% 03/27/2019 3:01 PM [employer] RA Inhaled Oxygen Concentration - - Weight 114 kg (251 lb 6.4 oz) 03/27/2019 3:01 PM [employer] Height 176.5 cm (5' 9.5) 03/27/2019 3:01 PM [employer] Body Mass Index 36.59 03/27/2019 3:01 PM [employer] Plan of Treatment Health Maintenance Due Date Last Done Comments HEPATITIS B VACCINES (1 of 3 - 19+ 3-dose series) 02/16 COLORECTAL SCREENING 2022 Colorectal Cancer Screening 2022 FIT-DNA Q 3 years 2022 FIT/FOBT Q 1 year 2022 Flex Sig/CT Colonography Q 5 years 2022 INFLUENZA VACCINE (#1) 2023 DTAP/TDAP/TD VACCINES (2 - Td or Tdap) 09/26/2030 Insurance [facility] CHO[facility] [id number] [facility] [id number] [facility]
[2024-07-18 05:02] VITALS: BP 148/90; PULSE 77; RESP 12; TEMP 36.6; O2SAT 99
--- NOTE | 2024-07-18 05:08 | ED.MALEGU ---
HPI - Male Genitourinary General Chief complaint: Urogenital-Male Stated complaint: kidney stone attack Time Seen by Provider: 07/18/24 04:58 Source: patient Mode of arrival: ambulatory Limitations: no limitations History of Present Illness HPI Narrative: Patient presents with report of a kidney stone. Approximately 2 hours prior to arrival he had acute onset right flank pain and right lower quadrant abdominal pain radiating into his right groin and right testicle. He has a history of multiple stones and is followed by Urology here at [place]. He has been able to urinate. He had hematuria approximately 1 week ago but then that resolved. He had been asymptomatic for several years with his last surgical intervention in [address] Meng. At that time, he had lithotripsy performed which broke up the stone but he was still unable to pass that stone. Has required multiple procedures. No penile discharge. He is having nausea. He took tramadol a tamsulosin prior to arrival. He denies any fevers but he has been having chills. He has allergies to various opiate medications in his list however he states that he has successfully taken Percocet and Dilaudid before. Related Data Home Medications ?Medication ?Instructions ?Recorded ?Confirmed ?Last Taken ?Type montelukast 10 mg tablet 10 mg PO HS 09/30/20 07/18/24 09/04/21 History (Singulair) fexofenadine-pseudoephedrine ER 1 tablet PO DAILY 03/21/24 07/18/24 Unknown History 180 mg-240 mg tablet,ext.release 24 hr (Susan-D 24 Hour) Allergies Allergy/AdvReac Type Severity Reaction Status Date / Time droperidol Allergy Unknown MUSCLE Verified 07/18/24 15:13 SPASMS codeine AdvReac Unknown STATES Verified 07/18/24 15:13 FAMILY HAS ALLERGY TO THIS, PREFERS NOT TO HAVE hydrocodone AdvReac Unknown SWEATING/NA Verified 07/18/24 15:13 USEA/VOMITI NG meperidine AdvReac Unknown N/V Verified 07/18/24 15:13 [facility] Past Medical History Medical History Congestion of nasal sinus SAMAN (obstructive sleep apnea) History of postoperative complication of surgical procedure History of adverse reaction to anesthesia Capsulitis of right ankle Kidney stones GERD (gastroesophageal reflux disease) Asthma Surgical History Surgical History History of extraction of renal calculus History of orthopedic surgery H/O inguinal hernia repair Family History Family History Other Diabetes mellitus Family history of allergic disorder High cholesterol Hypertension Social History Social History Social History: 03/21/24 somewhat confident with medical forms Smoking packs per day: 0.5 Smoking cigarettes per day: 10.0 Years smoked: 11 Smoking pack-years: 5.50 Smoking status: Former smoker Tobacco type: cigarettes Smoking end date: 02/15/06 Alcohol intake: current Drinks per week: 4 Alcohol use details: weekends Substance use: never Substance use type: does not use Do You Feel Safe in your Home?: Yes Lack of Transportation: No Lack of Food: Never True Current Housing: I Have Housing Concerned About Future Housing: No Difficulty Paying Gas/Electric Bills: No Currently Unemployed: No Education: Decline to Answer Difficulty w/ Childcare or Family Care: No Living arrangements: with family Gender identity (if verbalized by the patient): Male Spiritual care concerns: No Exam Narrative: GENERAL: Well-appearing, well-nourished, in mild acute distress. HEAD: Normocephalic, atraumatic. EYES: Non injected, non icteric ENT: Nares clear, no rhinorrhea or epistaxis. Gross auditory acuity intact. NECK: Supple. No meningismus. CHEST: Speaking in full sentences. No respiratory distress. HEART: Regular rate and rhythm. . ABDOMEN: Soft, nondistended. Mild TTP in RLQ. No rigidity or guarding. Not peritoneal : No CVA tenderness bilaterally. EXTREMITIES: Normal range of motion. No lower extremity edema. SKIN: Warm, dry, no rash. NEURO: No focal deficits. Alert and oriented. Answering questions. Following commands. Normal speech without aphasia or dysarthria. PSYCH: Normal mood and affect. Course Vital Signs Vital signs: Vital Signs Temperature 98 F 07/18/24 05:02 Pulse Rate 77 07/18/24 05:02 Respiratory Rate 12 07/18/24 05:02 Blood Pressure 148/90 H 07/18/24 05:02 Pulse Oximetry 99 07/18/24 05:02 Temperature 98 F 07/18/24 05:02 Pulse Rate 95 07/18/24 09:02 Respiratory Rate 18 07/18/24 09:02 Blood Pressure 124/88 07/18/24 09:02 Pulse Oximetry 97 07/18/24 09:02 MDM - Male Genitourinary MDM Narrative Medical decision making narrative: Patient presents with right flank/abdominal /groin pain that started acutely. Concerned for kidney stone as has had several previously. Took Tramadol and tamsulosin just [employer] INSIDE. In the emergency department he is afebrile with acceptable vital signs, mild hypertension. Only very mild leukocytosis. Ureteral stone on imaging. Patient states this his his 13th stone and he has signficant scar tissue which has caused difficulties with spontaneous passage/expulsion therapy previously, even with small size stones. Spoke with Dr. Camacho who notes no emergent need for urologic intervention but will come to bedside to evaluate and attempt to schedule outpatient procedure as soon as possible. Stable for discharge with Rx for opiates for breakthrough pain. Already has sufficient tamsulosin and ketorolac at home per patient. Doug's office will call to schedule outpatient. Requests obtaining KUB before discharge. Provided ED return precautions. Also Rx for Zofran. Differential Diagnosis Differential diagnosis: Likely epididymitis and other (kidney stone, constipation; diverticultis) Lab Data Attestation: I reviewed the patient's lab results. 07/18/24 05:02 07/18/24 05:02 Labs: Lab Results 07/18/24 Range/Units 05:02 WBC 10.2 H (4.5-10.0) K/mm3 RBC 5.39 (4.6-6.20) M/mm3 Hgb 16.3 (14.0-18.0) g/dL Hct 47.7 (42.0-52.0) % MCV 88.5 (80-100) fl MCH 30.2 (26-34) pg MCHC 34.2 (32-36) g/dl RDW 12.0 (11.5-14.5) % Plt Count 229 (150-375) k/mm3 MPV 9.2 (7.4-10.4) fl Immature Gran % (Auto) 0.5 (0-0.5) % Neut % (Auto) 80.9 H (45.5-73.1) % Lymph % (Auto) 10.0 L (18.3-44.2) % [place] % (Auto) 6.9 (2.6-8.5) % Eos % (Auto) 1.5 (0-4.4) % Baso % (Auto) 0.2 (0.2-1.2) % Lymph # (Auto) 1.02 (0.9-3.2) K/mm3 [place] # (Auto) 0.7 H (0.1-0.6) K/mm3 Eos # (Auto) 0.2 (0-0.3) K/mm3 Baso # (Auto) 0.0 (0.0-0.1) K/mm3 Abs Immat Gran (auto) 0.05 H (0.00-0.031) K/mm3 Absolute Neuts (auto) 8.2 H (1.3-6.7) K/mm3 Absolute Nucleated RBC 0.000 (0.0-0.012) K/mm3 Nucleated RBC % 0.0 (0.0-0.2) % Sodium 141 (137-145) mmol/L Potassium 3.8 (3.4-5.0) mmol/L Chloride 110 H (98-107) mmol/L Carbon Dioxide 23 (22-30) mmol/L Anion Gap 8 (4-12) mmol/L BUN 22 H (9-20) mg/dL Creatinine 0.83 (0.7-1.3) mg/dL Estim Creat Clear Calc 108 ml/min Estimated GFR > 60 (59 - ) Glucose 133 H (65-110) mg/dL Calcium 8.9 (8.4-10.2) mg/dL Total Bilirubin 0.5 (0.2-1.3) mg/dL AST 23 (17-59) U/L ALT 17 (6-50) U/L Alkaline Phosphatase 73 (38-126) U/L Total Protein 7.0 (6.3-8.2) g/dL Albumin 4.0 (3.5-5.1) g/dL Urine Color Yellow (Yellow) Urine Appearance Clear (Clear) Urine pH 7.5 (5.0-9.0) Ur Specific [place] 1.021 (1.001-1.035) Urine Protein Negative (Negative) mg/dL Urine Glucose (UA) Negative (Negative) mg/dL Urine Ketones Negative (Negative) mg/dL Ur Blood (Man) Trace (Negative) Urine Nitrate Negative (Negative) Urine Bilirubin Negative (Negative) Urine Urobilinogen 1.0 (<2.0) mg/dL Leukocyte Esterase Rfl Negative (Negative) TARIQ/UL Imaging Data Radiologist's impression: Impression: 5 mm mid to distal right ureteral stone with moderate right hydroureteronephrosis to this level. Additional small nonobstructing renal stones, as above. IMPRESSION: 1. Unchanged 5 to 6 mm distal right ureteral stone. Discharge Plan Discharge Clinical Impression: Right ureteral calculus Patient Disposition: Home Condition: Stable Instructions: Antibiotic Form, Narcotic Safety (ED), How to Strain Your Urine (ED), Ureteral Stones (ED) Additional Instructions: You noted that you still have plenty of Toradol and Tamsulosin. Continue taking this as prescribed. If you have recurrent nausea/vomiting, the oral disintegrating tablets of Zofran can help. For breakthrough pain, opiate/narcotic medication has been prescribed. Dr Camacho's office will call you regarding setting up outpatient procedure for this stone if you do not pass it with expulsion therapy alone. Return to the emergency department with any new, worsening, or unmanaged symptoms such as fever greater than 100.4? F, intractable pain, intractable nausea/vomiting, etc. Patient Language: Swiss Prescriptions: New ondansetron 4 mg tablet,disintegrating 4 mg PO Q8H PRN (Reason: nausea and vomiting) Qty: 7 0RF oxycodone-acetaminophen [Percocet] 5-325 mg tablet 1 tablet PO Q6H PRN (Reason: pain) 4 Days Qty: 10 0RF No Action montelukast [Singulair] 10 mg tablet 10 mg PO HS fexofenadine-pseudoephedrine [Susan-D 24 Hour] 180-240 mg tablet extended release 24 hr 1 tablet PO DAILY albuterol sulfate [Ventolin HFA] 90 mcg/actuation HFA aerosol inhaler 2 inh inhalation Q4H PRN (Reason: shortness of breath or wheezing) Qty: 6.7 0RF omeprazole 20 mg capsule,delayed release(DR/EC) 20 mg PO DAILY PRN (Reason: GERD) Qty: 90 0RF tamsulosin [Flomax] 0.4 mg capsule 0.4 mg PO DAILY Qty: 30 0RF Patient Comments: HS tramadol 50 mg tablet 50 mg PO Q6H PRN (Reason: pain) Qty: 30 0RF Ubrelvy 100 mg tablet 100 mg PO ONCE Qty: 16 0RF Rx Instructions: as a single dose; may repeat once in >=2 hours after first dose if needed Qulipta 30 mg tablet See Rx Instructions .ROUTE .COMPLEX Qty: 90 1RF Dose Instruction: Take 1 tablet by mouth once daily Patient Comments: HS Rx Instructions: Take 1 tablet by mouth once daily Follow-up/Referrals: Galdino Camacho MD [Physician] - Anay Buck APN-C [Primary Care Provider] - Stand Alone Forms: Work/School Release IP Time of Disposition: 08:49
[2024-07-18 05:23] LABS: Basophils Percent Auto 0.2 % (0.2-1.2); Eosinophils Absolute Auto 0.2 K/mm3 (0-0.3); Eosinophils Percent Auto 1.5 % (0-4.4); Hematocrit 47.7 % (42.0-52.0); Hemoglobin 16.3 g/dL (14.0-18.0); Immature Granulocyte Absolute 0.05 K/mm3 (0.00-0.031); Immature Granulocyte Percent A 0.5 % (0-0.5); Lymphocytes Absolute Auto 1.02 K/mm3 (0.9-3.2); Mean Corpuscular HGB Conc 34.2 g/dl (32-36); Mean Corpuscular Hemoglobin 30.2 pg (26-34); Mean Corpuscular Volume 88.5 fl (80-100); Mean Platelet Volume 9.2 fl (7.4-10.4); Monocytes Absolute Auto 0.7 K/mm3 (0.1-0.6); Monocytes Percent Auto 6.9 % (2.6-8.5); Neutrophils Absolute Auto 8.2 K/mm3 (1.3-6.7); Neutrophils Percent Auto 80.9 % (45.5-73.1); Platelet Count Result 229 k/mm3 (150-375); Red Blood Count 5.39 M/mm3 (4.6-6.20); White Blood Count 10.2 K/mm3 (4.5-10.0)
--- OUTSIDE RECORDS SUMMARY | 2024-07-18 05:27 | XMS_ITS | Clinical Summary ---
Author Organization [facility] Address [address] [address] [place] [address] Phone Care Team Providers Care Power Distribution Engineer Name Role Phone Unavailable Primary Care Provider [...] Comments Blood Pressure 136/76 03/27/2019 3:01 PM TIRE MOLD TESTER Pulse 73 03/27/2019 3:01 PM TIRE MOLD TESTER Temperature - - Respiratory Rate 18 03/27/2019 3:01 PM TIRE MOLD TESTER Oxygen Saturation 97% 03/27/2019 3:01 PM TIRE MOLD TESTER RA Inhaled Oxygen Concentration - - Weight 114 kg (251 lb 6.4 oz) 03/27/2019 3:01 PM TIRE MOLD TESTER Height 176.5 cm (5' 9.5) 03/27/2019 3:01 PM TIRE MOLD TESTER Body Mass Index 36.59 03/27/2019 3:01 PM TIRE MOLD TESTER Plan of Treatment Health Maintenance Due Date Last Done Comments HEPATITIS B VACCINES (1 of 3 - 19+ 3-dose series) 02/16 COLORECTAL SCREENING 2022 Colorectal Cancer Screening 2022 FIT-DNA Q 3 years 2022 FIT/FOBT Q 1 year 2022 Flex Sig/CT Colonography Q 5 years 2022 INFLUENZA VACCINE (#1) 2023 DTAP/TDAP/TD VACCINES (2 - Td or Tdap) 09/26/2030 Insurance [facility] CHOICE [id number] [facility] [id number] [facility]
[2024-07-18 05:34] LABS: Alanine Aminotransferase 17 U/L (6-50); Alkaline Phosphatase 73 U/L (38-126); Anion Gap 8 mmol/L (4-12); Aspartate Amino Transferase 23 U/L (17-59); Bilirubin,Total 0.5 mg/dL (0.2-1.3); Blood Urea Nitrogen 22 mg/dL (9-20); Calcium 8.9 mg/dL (8.4-10.2); Carbon Dioxide 23 mmol/L (22-30); Chloride 110 mmol/L (98-107); Estimated CRCL calculation 108 ml/min; Estimated Glomerular Filt Rate > 60; Glucose 133 mg/dL (65-110); Potassium 3.8 mmol/L (3.4-5.0); Sodium 141 mmol/L (137-145)
[2024-07-18] MEDS: HYDROmorphone HCL INJ (*CRX) 2 MG/ML VIAL 1 MG IV PUSH ×2 (05:39→08:59)
[2024-07-18 06:52] VITALS: BP 123/68; PULSE 77; RESP 17; O2SAT 94
[2024-07-18 07:22] LABS: Add Urine Microscopic? YES; Appearance Urine Clear (Clear); Bilirubin Urine Negative (Negative); Blood Urine Trace (Negative); Color Urine Yellow (Yellow); Glucose Urine UA Negative (Negative); Ketones Urine Negative (Negative); Leukocyte Esterase Ur Negative LEU/UL (Negative); Nitrate Urine Negative (Negative); Protein Urine Negative (Negative); Specific Grav Ur 1.021 (1.001-1.035); pH Urine 7.5 (5.0-9.0)
[2024-07-18 08:17] VITALS: BP 142/84; PULSE 88; RESP 14; O2SAT 98
[2024-07-18 09:02] VITALS: BP 124/88; PULSE 95; RESP 18; O2SAT 97
[2024-07-18] MEDS: ONDANSETRON INJ 4 MG/2 ML VIAL IV PUSH (09:08)
== END 2024-07-18 09:22 | disposition home or self-care (01) ==
PROVIDERS: Emergency Provider Student in an Organized Health Care Education/Training Program; PCP Nurse Practitioner Family
DX: N13.2 Hydronephrosis with renal and ureteral calculous obstruction (principal); Z87.891 Personal history of nicotine dependence
CPT/HCPCS: 36415; 74018; 74176; 80053; 81001; 85025; 96374; 96375; 96376; 99284; J1171; J2405

== ENCOUNTER 2024-07-21 01:14 | Day surgery (SDC) | payer OTHER, SELFPAY ==
--- NOTE | 2024-07-18 09:45 | WPDURCON ---
Assessment and Plan Assessment and plan (1) Right ureteral calculus: Code(s): N20.1 - Calculus of ureter Status: Acute Assessment and Plan: Patient is resting fairly comfortable at this time. The operating room has no availability at this point time. He will be discharged home with plans to proceed with cystoscopy right retrograde right ureteroscopy possible laser stent placement on Wednesday. If Pain recurs then he will need to come back to the emergency room. Urology Consult Note HPI Date Seen: 07/18/24 Time Seen: 09:00 Requesting Physician: Galdino Camacho MD Primary Care Provider: LEONARDO Chance Consult Narrative Reason for consult: Right distal ureteral calculus 5-6 mm Narrative: John Rossi is a 49 year old male who is a recurrent stone former. He presented emergency room with right renal colic. Evaluation in the emergency room reveals a 5-6 mm mid to distal right ureteral stone with some mild hydro. At this time his pain is somewhat controlled. WBC is 10 with a negative urine-. Review of Systems Review of Systems: All systems reviewed & are unremarkable except as noted in HPI and below PMFSH Past Medical History Medical History Congestion of nasal sinus SAMAN (obstructive sleep apnea) History of postoperative complication of surgical procedure History of adverse reaction to anesthesia Capsulitis of right ankle Kidney stones GERD (gastroesophageal reflux disease) Asthma Surgical History Surgical History History of extraction of renal calculus History of orthopedic surgery H/O inguinal hernia repair Family History Family History Other Diabetes mellitus Family history of allergic disorder High cholesterol Hypertension Social History Social History Social History: 03/21/24 somewhat confident with medical forms Smoking packs per day: 0.5 Smoking cigarettes per day: 10.0 Years smoked: 5 Smoking pack-years: 2.50 Smoking status: Former smoker Tobacco type: cigarettes Smoking end date: 03/01/06 Alcohol intake: current Drinks per week: 2 Substance use: never Substance use type: does not use Do You Feel Safe in your Home?: Yes Lack of Transportation: No Lack of Food: Never True Current Housing: I Have Housing Concerned About Future Housing: No Difficulty Paying Gas/Electric Bills: No Currently Unemployed: No Education: Decline to Answer Difficulty w/ Childcare or Family Care: No Living arrangements: with family Gender identity (if verbalized by the patient): Male Spiritual care concerns: No Meds Home Medications and Allergies Home Medications ?Medication ?Instructions ?Recorded ?Confirmed ?Type montelukast 10 mg tablet 10 mg PO HS 09/30/20 07/05/24 History (Singulair) ubrogepant 100 mg tablet (Ubrelvy) 100 mg PO ONCE #16 tabs 06/08/23 07/05/24 Rx albuterol sulfate 90 mcg/actuation 2 inh inhalation Q4H PRN shortness 03/21/24 07/05/24 Rx aerosol inhaler (Ventolin HFA) of breath or wheezing #6.7 grams fexofenadine-pseudoephedrine ER 1 tablet PO DAILY 03/21/24 07/05/24 History 180 mg-240 mg tablet,ext.release 24 hr (Susan-D 24 Hour) atogepant 30 mg tablet (Qulipta) See Rx Instructions .Route 06/28/24 07/05/24 Rx .COMPLEX #90 tabs omeprazole 20 mg capsule,delayed 20 mg PO DAILY PRN GERD #90 caps 07/05/24 07/05/24 Rx release tamsulosin 0.4 mg capsule (Flomax) 0.4 mg PO DAILY #30 caps 07/05/24 07/05/24 Rx tramadol 50 mg tablet 50 mg PO Q6H PRN pain #30 tabs 07/05/24 07/05/24 Rx ondansetron 4 mg disintegrating 4 mg PO Q8H PRN nausea and 07/18/24 Rx tablet vomiting #7 tabs oxycodone-acetaminophen 5 mg-325 1 tablet PO Q6H PRN pain 4 days 07/18/24 Rx mg tablet (Percocet) #10 tabs Allergies Allergy/AdvReac Type Severity Reaction Status Date / Time droperidol Allergy Unknown MUSCLE Verified 07/18/24 04:44 SPASMS codeine AdvReac Unknown STATES Verified 06/03/25 04:44 FAMILY HAS ALLERGY TO THIS, PREFERS NOT TO HAVE hydrocodone AdvReac Unknown SWEATING/NA Verified 07/18/24 04:44 USEA/VOMITI NG meperidine AdvReac Unknown N/V Verified 07/18/24 04:44 Exam Const: General: cooperative and comfortable Resp: Effort & Inspection: normal respiratory effort Cardio: Rate: regular rate Rhythm: regular rhythm
[2024-07-18 15:17] VITALS: BMI 29.5
--- NOTE | 2024-07-18 15:32 | PC.NURSE ---
Report to the Outpatient Waiting Room, entrance under the green pavilion located off [facility], at time __0830am on date __07/21/24 . Planned Procedure Time: _1030am .? Time changes happen often and if your time is changed the preop area will call you the afternoon before. - You and your visitor will be asked to self-screen and do not enter if you have any COVID symptoms. Please call surgeon if you need to reschedule. - A mask is optional within the hospital at this time. Patients may have clear liquids (water, carbonated beverages, clear teas, apple juice) until 3 hours prior to surgery with a maximum of 20 ounces. - No food from midnight until time of surgery and no smoking, or chewing tobacco (or any form of nicotine). No chewing gum, candy or mints. (0730am) Take only the following medications with a SIP of water on the morning of surgery: _Percocet and or Tramadol if needed, Inhaler if needed DO NOT STOP ANY OF YOUR OTHER PRESCRIPTION MEDICATIONS PRIOR TO SURGERY EXCEPT THE FOLLOWING Hold all vitamins and supplements for 3 days per anesthesiologist. Medications to discontinue per physician No NSAIDS/ALEVE- 7 days prior Date to take last dose pt denies Please no make-up, nail slovenian, hairspray, perfume, deodorant, or body powder the day of surgery.? No jewelry (including any body piercings) or valuables the day of surgery, leave them at home.? Please take a shower or bath the night before, or the morning of, surgery with an antibacterial soap.? Wear comfortable, loose fitting clothing.? - Jewelry must be removed prior to entering the operating room.? Rings and piercings that are not removed may be cut off. - The hospital will not accept responsibility for valuables.? - Please leave all valuables, including medications, at home the day of surgery. If you are going home after surgery, a licensed light truck driver must drive you home.? - NO public transportation without another adult if you receive anesthesia. - We recommend that an adult stay with you for 24 hours following discharge. - We also recommend that you do not drive, make important decision, drink alcoholic beverages, or take any drugs that were not prescribed by your health care provider for at least 24 hours after your discharge time. Follow any additional instructions given to you from your surgeon. Telephone instructions given to __Patient and asked if any additional questions and then verbalized understanding. Patient advised to call surgeon office or pre surgery nurse liaison [phone] if any additional questions.
[2024-07-21] VITALS (10 sets, daily range): BP systolic 107–133; BP diastolic 43–92; PULSE 66–82; RESP 8–20; TEMP 36.1–36.4; O2SAT 93–99; BMI 31.1
--- NOTE | ~2024-07-21 | XR_ITS ---
EXAMINATION: XR retrograde pyelo w/stent RT DATE: 07/21/2024 11:42 INDICATION: Right internal ureteral stent placement TECHNIQUE: Fluoroscopic images from a right internal ureteral stent placement are submitted for aiyana boyd 13 seconds of fluoroscopy time. FINDINGS: There is a right double-J internal ureteral stent projecting in expected position, with proximal Pelzer loop at the level of the renal pelvis and distal loop in the pelvis within the bladder lumen. IMPRESSION: 1. Right internal ureteral stent placement. Please refer to real-time procedural findings for detai ls. Reviewed, dictated and finalized at location A. IMPRESSION: 1. Right internal ureteral stent placement. Please refer to real-time procedu ral findings for details.
--- OUTSIDE RECORDS SUMMARY | 2024-07-21 01:16 | XMS_ITS | Clinical Summary ---
Author Organization [facility] Address [address] [address] [place] [address] Phone Care Team Providers Care Shipping Lead Name Role Phone Unavailable Primary Care Provider [...] Encounters Date Type Department Care Team Description 07/18/2024 External Device Data [facility] ABSTRACTION Provider, Abstract 07/04/2024 External Device Data [facility] ABSTRACTION Provider, [...] Comments Blood Pressure 136/76 03/27/2019 3:01 PM MAINTAINER [employer]KS Pulse 73 03/27/2019 3:01 PM [employer] Temperature - - Respiratory Rate 18 03/27/2019 3:01 PM [employer] Oxygen Saturation 97% 03/27/2019 3:01 PM MAIN[employer] RA Inhaled Oxygen Concentration - - Weight 114 kg (251 lb 6.4 oz) 03/27/2019 3:01 PM [employer] Height 176.5 cm (5' 9.5) 03/27/2019 3:01 PM [employer] Body Mass Index 36.59 03/27/2019 3:01 PM [employer] Plan of Treatment Health Maintenance Due Date Last Done Comments HEPATITIS B VACCINES (1 of 3 - 19+ 3-dose series) 02/16 COLORECTAL SCREENING 2022 Colorectal Cancer Screening 2022 FIT-DNA Q 3 years 2022 FIT/FOBT Q 1 year 2022 Flex Sig/CT Colonography Q 5 years 2022 INFLUENZA VACCINE (#1) 2023 DTAP/TDAP/TD VACCINES (2 - Td or Tdap) 09/26/2030 Insurance [facility] CHOICE [id number] [facility] CHO[facility] [id number] [facility] CHOICE
[2024-07-21] MEDS: LACTATED RINGERS 1,000 ML 30 ML IV CONT (09:10)
--- NOTE | 2024-07-21 09:30 | WPDHPUPDATE1 ---
History and Physical Update Update Date/Time: 07/21/24 09:30 History and Physical has been reviewed, including an updated exam of the patient. There are NO changes in the patient's condition. Risks, benefits, and alternatives have been discussed and questions answered. Patient agrees to proceed with procedure. Proceed with cystoscopy, right retrograde, right ureteroscopy with stone extraction, possible laser, stent placement
--- NOTE | 2024-07-21 09:53 | PM.IMHP ---
H&P: HPI History of Present Illness Date/Time: 07/21/24 09:53 Chief Complaint: Distal right ureteral calculus 6-7 mm Narrative: 49-year-old male who developed right lower quadrant and flank pain. He was in the emergency room earlier in the week was found have a 6-7 mm distal right ureteral calculus. He now presents for definitive treatment. Review of Systems Review of Systems: All systems reviewed & are unremarkable except as noted in HPI and below PMFSH Past Medical History Medical History (Updated 07/21/24 @ 09:56 by Galdino Camacho MD) Right ureteral calculus Congestion of nasal sinus SAMAN (obstructive sleep apnea) History of postoperative complication of surgical procedure History of adverse reaction to anesthesia Capsulitis of right ankle Kidney stones GERD (gastroesophageal reflux disease) Asthma Surgical History Surgical History History of extraction of renal calculus History of orthopedic surgery H/O inguinal hernia repair Family History Family History Other Diabetes mellitus Family history of allergic disorder High cholesterol Hypertension Social History Social History Social History: 03/21/24 somewhat confident with medical forms Smoking packs per day: 0.5 Smoking cigarettes per day: 10.0 Years smoked: 11 Smoking pack-years: 5.50 Smoking status: Former smoker Tobacco type: cigarettes Smoking end date: 02/15/06 Alcohol intake: current Drinks per week: 4 Alcohol use details: weekends Substance use: never Substance use type: does not use Do You Feel Safe in your Home?: Yes Lack of Transportation: No Lack of Food: Never True Current Housing: I Have Housing Concerned About Future Housing: No Difficulty Paying Gas/Electric Bills: No Currently Unemployed: No Education: Decline to Answer Difficulty w/ Childcare or Family Care: No Living arrangements: with family Gender identity (if verbalized by the patient): Male Spiritual care concerns: No Meds Home Medications and Allergies Home Medications ?Medication ?Instructions ?Recorded ?Confirmed ?Type montelukast 10 mg tablet 10 mg PO HS 09/30/20 07/21/24 History (Singulair) ubrogepant 100 mg tablet (Ubrelvy) 100 mg PO ONCE #16 tabs 06/08/23 07/18/24 Rx albuterol sulfate 90 mcg/actuation 2 inh inhalation Q4H PRN shortness 03/21/24 07/18/24 Rx aerosol inhaler (Ventolin HFA) of breath or wheezing #6.7 grams fexofenadine-pseudoephedrine ER 1 tablet PO DAILY 03/21/24 07/18/24 History 180 mg-240 mg tablet,ext.release 24 hr (Susan-D 24 Hour) atogepant 30 mg tablet (Qulipta) See Rx Instructions .Route 06/28/24 07/21/24 Rx .COMPLEX #90 tabs omeprazole 20 mg capsule,delayed 20 mg PO DAILY PRN GERD #90 caps 07/05/24 07/18/24 Rx release tamsulosin 0.4 mg capsule (Flomax) 0.4 mg PO DAILY #30 caps 07/05/24 07/18/24 Rx tramadol 50 mg tablet 50 mg PO Q6H PRN pain #30 tabs 07/05/24 07/18/24 Rx ondansetron 4 mg disintegrating 4 mg PO Q8H PRN nausea and 07/18/24 07/18/24 Rx tablet vomiting #7 tabs oxycodone-acetaminophen 5 mg-325 1 tablet PO Q6H PRN pain 4 days 07/18/24 07/18/24 Rx mg tablet (Percocet) #10 tabs Allergies Allergy/AdvReac Type Severity Reaction Status Date / Time droperidol Allergy Unknown MUSCLE Verified 07/21/24 09:18 SPASMS codeine AdvReac Unknown STATES Verified 07/21/24 09:18 FAMILY HAS ALLERGY TO THIS, PREFERS NOT TO HAVE hydrocodone AdvReac Unknown SWEATING/NA Verified 07/21/24 09:18 USEA/VOMITI NG meperidine AdvReac Unknown N/V Verified 07/21/24 09:18 Vital Signs Vital Signs - 24 hr 07/21/24 08:40 Temperature 36.4 C Pulse Rate 81 Respiratory Rate 16 Blood Pressure 112/92 H Pulse Oximetry 99 Oxygen Delivery Room Air Exam Const: General: cooperative Resp: Effort & Inspection: normal respiratory effort Cardio: Rate: regular rate Rhythm: regular rhythm Assessment and Plan Assessment and plan (1) Right ureteral calculus: Code(s): N20.1 - Calculus of ureter Status: Acute Assessment and Plan: Proceed with cystoscopy, right retrograde, right ureteroscopy with stone extraction, possible laser, stent placement
--- NOTE | 2024-07-21 09:56 | WPDHPUPDATE1 ---
History and Physical Update Update Date/Time: 07/21/24 09:56 History and Physical has been reviewed, including an updated exam of the patient. There are NO changes in the patient's condition. Risks, benefits, and alternatives have been discussed and questions answered. Patient agrees to proceed with procedure.
--- NOTE | 2024-07-21 11:01 | P.PNAN_ITS ---
Anes - Initial Pre Proc Eval Procedure: Operation Date: 07/21/24 10:30 Proposed Procedures p Cystoscopy, Right Ureteroscopy, Possible Right Retrograde Pyelogram, Possible Right Stone Extraction, Possible Right Stent Placement, Possible Holmium Laser - Galdino Camacho MD Date/Time: 07/21/24 11:01 Surgeon: Galdino Camacho MD Pre Op Diagnosis: right kidney stone Patient Data Age: 49 Gender: M Height: 1.77 m Weight: 97 kg Last Vital Signs Temp 97.6 F 07/21/24 08:40 Pulse 81 07/21/24 08:40 Resp 16 07/21/24 08:40 BP 112/92 H 07/21/24 08:40 Pulse Ox 99 07/21/24 08:40 O2 Del Method Room Air 07/21/24 08:40 Allergies Allergy/AdvReac Type Severity Reaction Status Date / Time droperidol Allergy Unknown MUSCLE Verified 07/21/24 09:18 SPASMS codeine AdvReac Unknown STATES Verified 07/21/24 09:18 FAMILY HAS ALLERGY TO THIS, PREFERS NOT TO HAVE hydrocodone AdvReac Unknown SWEATING/NA Verified 07/21/24 09:18 USEA/VOMITI NG meperidine AdvReac Unknown N/V Verified 07/21/24 09:18 Home Medications ?Medication ?Instructions ?Recorded ?Confirmed ?Type montelukast 10 mg tablet 10 mg PO HS 09/30/20 07/21/24 History (Singulair) ubrogepant 100 mg tablet (Ubrelvy) 100 mg PO ONCE #16 tabs 06/08/23 07/18/24 Rx albuterol sulfate 90 mcg/actuation 2 inh inhalation Q4H PRN shortness 03/21/24 07/18/24 Rx aerosol inhaler (Ventolin HFA) of breath or wheezing #6.7 grams fexofenadine-pseudoephedrine ER 1 tablet PO DAILY 03/21/24 07/18/24 History 180 mg-240 mg tablet,ext.release 24 hr (Susan-D 24 Hour) atogepant 30 mg tablet (Qulipta) See Rx Instructions .Route 06/28/24 07/21/24 Rx .COMPLEX #90 tabs omeprazole 20 mg capsule,delayed 20 mg PO DAILY PRN GERD #90 caps 07/05/24 07/18/24 Rx release tamsulosin 0.4 mg capsule (Flomax) 0.4 mg PO DAILY #30 caps 07/05/24 07/18/24 Rx tramadol 50 mg tablet 50 mg PO Q6H PRN pain #30 tabs 07/05/24 07/18/24 Rx ondansetron 4 mg disintegrating 4 mg PO Q8H PRN nausea and 07/18/24 07/18/24 Rx tablet vomiting #7 tabs oxycodone-acetaminophen 5 mg-325 1 tablet PO Q6H PRN pain 4 days 07/18/24 07/18/24 Rx mg tablet (Percocet) #10 tabs Patient hx anesthesia problems: none Family hx anesthesia problems: none Results Review: All pre-operative results and documents have been reviewed as part of the pre- operative evaluation. [facility] Past Medical History Medical History (Updated 07/21/24 @ 09:56 by Galdino Camacho MD) Right ureteral calculus Congestion of nasal sinus SAMAN (obstructive sleep apnea) History of postoperative complication of surgical procedure History of adverse reaction to anesthesia Capsulitis of right ankle Kidney stones GERD (gastroesophageal reflux disease) Asthma Surgical History Surgical History History of extraction of renal calculus History of orthopedic surgery H/O inguinal hernia repair Family History Family History Other Diabetes mellitus Family history of allergic disorder High cholesterol Hypertension Social History Social History Social History: 03/21/24 somewhat confident with medical forms Smoking packs per day: 0.5 Smoking cigarettes per day: 10.0 Years smoked: 11 Smoking pack-years: 5.50 Smoking status: Former smoker Tobacco type: cigarettes Smoking end date: 02/15/06 Alcohol intake: current Drinks per week: 4 Alcohol use details: weekends Substance use: never Substance use type: does not use Do You Feel Safe in your Home?: Yes Lack of Transportation: No Lack of Food: Never True Current Housing: I Have Housing Concerned About Future Housing: No Difficulty Paying Gas/Electric Bills: No Currently Unemployed: No Education: Decline to Answer Difficulty w/ Childcare or Family Care: No Living arrangements: with family Gender identity (if verbalized by the patient): Male Spiritual care concerns: No Anes - Eval Final PreProcedure Day of Procedure 07/21/24 11:01 Patient weight: obese Heart: regular rate and rhythm Lungs: clear to auscultation Airway: Mallampati scale class II Neurological: alert and oriented Last oral intake: >/= 8 hours ASA classification: II Emergent: no Anesthetic plan: proceed Anesthesia type and monitoring: general LMA and standard monitoring Results Review: All pre-operative results and documents have been reviewed as part of the pre- operative evaluation. Informed Consent: The patient's anesthetic plan and its attendant risks and benefits were discussed with the patient/family/POA. Questions were solicited and answers provided to the satisfaction of the patient/family/POA.
[2024-07-21] MEDS: ceFAZolin 2 GM/D5W 50 ML 2 GM/50 ML BAG IVPB (11:08)
[2024-07-21] MEDS: LIDOCAINE 2% GEL UROJET 10 ML PKG MUCOUS MEM (11:22)
--- NOTE | 2024-07-21 11:37 | S_PTH ---
PATIENT: John Rossi LOC: [facility][id number] AGE/SX: 49/M ROOM: RE07/21/[address]: Galdino Camacho, : 1975 BED: DIS: 07/21/2024 SPEC #: [id number] RECD: 07/21/24 13:00 STATUS: NOE REJosé Luis #: [id number] HEATHER: 07/21/24 11:[address]: Doug,Galdino Song DEPT: [facility] Surgical RECD BY: Joan Hawkins ENTERED: 07/21/24 13:01 SP TYPE: Surgical OTHR DR: Anay Buck, IKE Tissues: A - Stone Procedures: Gross Exam Level 1 Crystalline Analysis
--- NOTE | 2024-07-21 11:42 | P.OP_ITS ---
Procedure Note - Detailed Date of Procedure 07/21/24 Pre-op Diagnosis Right ureteral calculus 7 mm Post-op Diagnosis Same Procedure Performed Cystoscopy, right retrograde, right ureteroscopy with holmium laser, stone extraction, right ureteral stent placement Surgeon Galdino Camacho MD Anesthesia General Description of Procedure Patient is taken the operative suite correctly identified. Once anesthesia was obtained he was placed in dorsal lithotomy position and prepped and draped usual sterile fashion. N[place]een [place] scope was inserted the bladder direct vision. Bladder is inspected. No tumors noted. Right ureteral orifice was cannulated with a guidewire. I dilated with an 8/10 dilator. Rigid ureteral scope was inserted. The stone was visualized grasped with an escape basket. It was too large retrieved in 1 piece. Using a 200 micron fiber we lasered the stone. Largest fragments were sent for analysis. Reinspection revealed no residual stones. Pyelogram was then performed to confirm placement of the stent. 4.8 [place] contour stent was then placed with the proximal end coiled over the renal pelvis and the distal end over the bladder. Bladder was drained. 2% viscous lidocaine was inserted into the urethra patient is taken recovery stable condition. He will follow up in about a week's time for stent removal. This completes dictation. Please send a copy of op note to my office. Estimated Blood Loss 0 Drains Yes Packing No Pathology Yes Complications No immediate complications Condition Stable Disposition PACU
[2024-07-21] MEDS: fentaNYL CITRATE INJ (*CRX) 100 MCG/2 ML VIAL 25 MCG IV PUSH ×6 (12:29→13:04)
[2024-07-21] MEDS: oxyCODONE HCL (*CRX) 5 MG TAB IR PO (13:35)
== END 2024-07-21 14:19 | disposition home or self-care (01) ==
PROVIDERS: PCP Nurse Practitioner Family; Visit Provider Urology
PROC: (CPT 52352; principal; 2024-07-21 10:30)
DX: N20.1 Calculus of ureter (principal); Z87.891 Personal history of nicotine dependence; E66.9 Obesity, unspecified; Z68.31 Body mass index [BMI] 31.0-31.9, adult
CPT/HCPCS: 52356; 74420; 82365; 88300; A9270; C1769; C2617; J0690; J1100; J2003; J2250; J2405; J2704; J3010; J7120; Q9966